=== PATIENT | male | born 1965 | race Caucasian/White ===

== ENCOUNTER 2019-08-21 16:17 | Outpatient (CLI) | payer BC, SELFPAY ==
[2019-08-21 16:45] LABS: Basophils # 0.1 10^3/uL (0.0-0.1); Eosinophils # 0.2 10^3/uL (0.0-0.8); Eosinophils % 2.6 %; Hemoglobin 14.7 g/dL (11.7-16.6); Lymphocytes # 1.6 10^3/uL (0.8-4.8); Lymphocytes % 19.6 %; Mean Corpuscular HGB Conc 31.3 g/dL (30.0-36.0); Mean Corpuscular Hemoglobin 28.6 pg (28.0-34.0); Mean Corpuscular Volume 91.4 fL (80-94); Mean Platelet Volume 11.3 fL (7.4-10.4); Monocytes # 0.6 10^3/uL (0.2-0.9); Monocytes % 6.7 %; Neutrophils # 5.63 10^3/uL (1.8-7.7); Neutrophils % 68.6 %; Nucleated Red Blood Cells % 0 %; Platelet Count 242 10^3/cmm (130-400); Red Blood Count 5.14 10^6/uL (4.1-5.3); White Blood Count 8.2 10^3/uL (4.0-10.0)
[2019-08-21 17:48] LABS: Slide Review Slide Review Perform
[2019-08-21 18:20] LABS: Alanine Aminotransferase 43 U/L (0-41); Albumin Level 4.5 g/dL (3.5-5.2); Alkaline Phosphatase 92 IU/L (40-130); Anion Gap 15.3 (5-19); Aspartate Amino Transferase 27 U/L (0-40); Blood Urea Nitrogen 13 mg/dL (6-20); Carbon Dioxide 25 mmol/L (22-29); Chloride 106 mmol/L (98-107); Chol HDL Ratio 4.27 mg/dL (1.0-5.00); Cholesterol 141 mg/dL (0-200); Glomerular Filtration Rate 100.4 mL/min (90-130); Glucose 133 mg/dL (65-115); HDL Cholesterol 33 mg/dL (60-100); LDL Cholesterol Calculated 80 mg/dL (50-129); LDL HDL Ratio 2.42 RATIO (0.00-3.22); Osmolality Calculated 292 mOsm/kg (285-295); Potassium 4.3 mmol/L (3.5-5.1); Sodium 142 mmol/L (136-145); Total Bilirubin 0.8 mg/dL (0.15-1.2); Total Protein 6.5 g/dL (6.6-8.7); Triglycerides 142 mg/dL (0-150)
[2019-08-21 18:49] LABS: Urine Color Yellow (Yellow)
[2019-08-21 18:50] LABS: Bilirubin Urine Neg (NEGATIVE); Blood Urine Neg (Negative); Glucose Urine UA Norm (Normal); Ketones Urine Negative (Negative); Leukocyte Esterase Urine Negative (Negative); Nitrate Urine Negative (Negative); Protein Urine Neg (Negative); Specific Gravity, Urine 1.025 (1.005-1.030); Urine Appearance Cloudy (CLEAR); Urobilinogen Urine Norm (Negative); pH Urine 5 (5-7)
[2019-08-21 18:51] LABS: Add Urine Culture? No; Amorphous Sediment Urine 4+; Bacteria Urine 2+; RBC Urine 0-4 /hpf (0-2); Squamous Epithelial Cell Urine 0-4 (0-5)
[2019-08-21 19:03] LABS: Estmated Average Glucose 117; Hemoglobin A1C 5.7 % (4.0-6.0)
== END 2019-08-21 16:18 | disposition home or self-care (01) ==
LOC: RAD 16:19
PROVIDERS: PCP Nurse Practitioner Family; Visit Provider Nurse Practitioner Family
DX: Z00.00 Encounter for general adult medical examination without abnormal findings (principal); I10 Essential (primary) hypertension; Z12.5 Encounter for screening for malignant neoplasm of prostate
CPT/HCPCS: 80053; 80061; 81001; 83036; 84153; 85025

== ENCOUNTER → 2019-09-26 09:16 | Outpatient (BNVA) | payer BC, SELFPAY | PROVIDERS: PCP Nurse Practitioner Family; Referring Provider Nurse Practitioner Family; Visit Provider Orthopaedic Surgery | DX: M25.561 Pain in right knee (principal); M17.11 Unilateral primary osteoarthritis, right knee | CPT/HCPCS: 73560; 73565 ==

== ENCOUNTER → 2020-03-26 13:03 | Outpatient (BNVA) | payer BC, SELFPAY | PROVIDERS: PCP Nurse Practitioner Family; Visit Provider Orthopaedic Surgery | DX: Z01.812 Encounter for preprocedural laboratory examination (principal); Z20.828 Contact with and (suspected) exposure to other viral communicable diseases | CPT/HCPCS: 87635 ==

== ENCOUNTER 2020-04-01 12:23 | Observation (INO) | payer BC, SELFPAY ==
[2020-03-18 11:23] VITALS: BMI 35.1
--- NOTE | 2020-03-18 11:56 | P.ANESASSM_ITS ---
Pre-Anesthetic Assessment Pre-Anesthetic Assessment: Height/Weight: Height 1.83 m Weight 117.48 kg Preop Diagnosis: Osteoarthritis right knee Proposed Procedure: Operation Date: 04/01/20 09:40 Proposed Procedures p Total Knee Arthroplasty 06841 M17.11(Right) - Chris Meade MD Was Beta Pedro taken within 24 hours: N/A Social: Social History: No alcohol and No tobacco Exam: Pre-Anes Outpt Exam: alert, oriented x 3, clear to auscultation bilaterally and regular rate & rhythm Airway: Submandibular: WNL Cervical ROM: WNL MP: 2 Dentition: False CV/HEM: CV/HEM: HTN Metabolic: Metabolic: DM and Morbid obesity Musc/skel: Musc/skel: OA/DJD Anesthetic Plan: ASA status: 3 Anesthesia: Regional (specify below) Other: SAB, adductor canal blk Risk of > 500 ml blood loss (7ml/kg in children): Yes, adequate IV access and fluids planned PFSH Anesthesia PFSH: Medical History (Updated 03/11/20 @ 09:25 by Chris Meade MD) Diabetes Hypertension Obesity Urinary retention Surgical History History of colonoscopy (~2015) History of laparoscopic cholecystectomy History of umbilical hernia repair (~01/2019) dr. rabago Family History Family/Other Obesity Denies family history of Anesthesia complication Bleeding disorder Social History Smoking and tobacco status: current every day smoker cigarettes Packs smoked per day: 1 Second hand smoke exposure: No Alcohol intake: never Desire information about substance/drug rehabilitation?: No Adopted: No Caregiver/support person: Yes Lives independently: Yes Household members: spouse Housing: House Marital status: service: No Current occupational status: employed Current occupation: self employeed. Current occupational exposures/hazards: No Pets and animals: No History of recent travel: No Leisure activites: hunting and fishing Sexually active: No Current gender identity: Male Hailey/Protestant: Mormon Special hailey needs: No Agree to transfusion: No Financial difficulty paying for basics: Decline to Answer Data Anesthesia Cardiac Studies: No Data to Display
[2020-04-01] VITALS (27 sets, daily range): BP systolic 120–161; BP diastolic 66–85; PULSE 63–92; RESP 11–22; TEMP 36.2–36.7; O2SAT 95–100
[2020-04-01] MEDS: sodium chloride 0.9% 1,000 ML 30 ML IV (08:11)
[2020-04-01] MEDS: acetaminophen 500 mg Tablet 1000 MG PO ×3 (08:12→20:40)
[2020-04-01] MEDS: oxyCODONE 20 mg ER (12 HR) Tablet PO (08:12)
[2020-04-01] MEDS: CELEcoxib 200 mg Capsule 400 MG PO (08:12)
[2020-04-01] MEDS: gabapentin 300 mg Capsule PO ×2 (08:13→17:22)
--- NOTE | 2020-04-01 08:59 | W.PM.OPSUD ---
Surgery/Procedure H&P Update DATE OF PROCEDURE: April 01, 2020 DATE H&P PERFORMED: 03/11/20 PREOP DIAGNOSIS: Osteoarthritis right knee PLANNED PROCEDURE: Operation Date: 04/01/20 09:40 Proposed Procedures p Total Knee Arthroplasty 06310 M17.11(Right) - Chris Meade MD
--- NOTE | 2020-04-01 09:26 | P.ANESUD_ITS ---
Pre-Anesthetic Update Pre-Anesthetic Assessment: Date of Surgery/Procedure: 04/01/20 Preop Mar gnosis: Osteoarthritis right knee Proposed Procedure: Operation Date: 04/01/20 09:40 Proposed Procedures p Total Knee Arthroplasty 73560 M17.11(Right) - Chris Meade MD Last Intake: Intake Last Liquid Date 03/31/20 Last Liquid Time 22:00 Last Solid Date 03/31/20 Last Solid Time 22:00 Vitals: Temperature 97.2 F L 04/01/20 07:56 Temperature Source Temporal Artery S can 04/01/20 07:56 Pulse Rate 65 04/01/20 07:56 Pulse Rhythm 04/01/20 08:00 Pulse Strength 3+ Normal 04/01/20 08:00 Respiratory Rate 18 04/01/20 08:12 Respiratory Depth Normal 04/01/20 08:12 Blood Pressure 139/85 04/01/20 07:56 Blood Pressure Vicky n 103 04/01/20 07:56 Pulse Oximetry 95 04/01/20 08:12 Oxygen Delivery Me thod 04/01/20 08:00 Cardiac Studies: No Data to Display
--- NOTE | 2020-04-01 10:20 | ANES.PROC ---
Anesthesia Procedures Procedure/Date: 04/01/20 Nerve Block ^: Nerve Block 1: Main Anesthesia: general anesthesia Time Out Performed: Yes Consent: requested by attending/covering physician, from patient, risks and benefits reviewed and patient agrees to proceed Nerve block location: adductor canal (right) Anesthesia monitors applied: pulse oximetry, EKG, BP cuff and oxygen Anesthetic Used: ropivicaine 0.5% Amount of anesthesia used (mL): 20 Ultrasound used to: recognize landmarks Nerve Stimulator Used?: No Interscalene/Femoral BLK: 4 stimuplex 21 g needle used for position and inplane approach Injection: neg aspiration of heme Patient Tolerated Procedure: well Complications: none
[2020-04-01] MEDS: tranexamic acid 1,000 mg/10mL SDV 1000 MG IRRIGATION (10:44)
[2020-04-01] MEDS: EPINEPHrine 1 mg/mL INJ XX (10:45)
[2020-04-01] MEDS: ketorolac 30 mg/mL INJ IM (10:45)
--- NOTE | 2020-04-01 11:21 | PM.OP ---
Operative Report Date of procedure: April 01, 2020 Pre-op Diagnosis: Osteoarthritis right knee Post-op diagnosis: same Post-op Findings: Same Procedure Done: The patient had eburnated bone over his medial femoral condyle, medial tibial plateau, patella and trochlea Implants: Melissa total knee arthroplasty components were used includin) Size 6 Triathalon cruciate retaining femoral component 2) Size 7 Tritanium tibial component 3) 40 mm /11 mm thickness Tritanium asymetric patella 4) Size 7/9 mm thickness CR tibial bearing insert Pathology: none sent Surgeon: Chris Meade Anesthesia: General Estimated blood loss (mL): 200 Findings: As above Condition: stable Disposition: PACU Procedure: The patient was taken to the operating room. Patient was given 1 g of tranexamic acid . The above anesthesia provided by the anesthesia service. A timeout was performed. The patient was prepped and draped in the usual fashion with the lower extremity exposed. A anterior incision was made, midline, from a point proximal to the patella to the distal tibial tubercle. The knee was entered through a medial parapatellar approach. The patella could be displaced laterally and the knee flexed. The patellar fat pad was resected to provide better visibility. Retractors were placed medially and laterally adjacent to the tibial plateau. The femoral canal was drilled in line with the longitudinal axis of the femur. Intramedullary femoral guide for used to make a distal femoral cut in 5 degrees of valgus, resecting 8 mm from the more prominent condyle. Next the extra medullary tibial guide was placed in alignment with the longitudinal axis of the tibia. The cutting guides were set to remove just over 9 mm from the high tibial plateau. The proximal tibia was then cut. The femoral measuring guide was then placed over the distal femur. Rotation was verified checking the relationship of the guide to the condyle and the trochlear groove. The femur was measured and cut for the desired femoral component. The desired tibial baseplate was then chosen. A trial reduction with the femur tibial baseplate and polyethylene was done, assuring that the knee was stable throughout full motion. Ligament balancing involve nothing more than removal of osteophytes of the medial tibia.The tibia was prepared for the tibial baseplate. Patellar thickness was then measured. The patella was cut removing articular cartilage and prepared for appropriate size patellar button. All surfaces were cleaned with pulsatile lavage. The femur tibia and patella were then [] into place. The posterior capsule and collateral ligaments were then injected with a solution of 100 mL of 0.2% ropivacaine, 1 mL of a 1:1000 epinephrine solution, and 30 mg of Toradol. Final polyethylene component was then snapped into place into the tibia. 2 grams of tranexamic acid were applied to the wound and gentamicin 80 mg and a 100 cc of solution were applied to the wound. The extensor retinaculum was closed with a running 1 Stratafix.. The subcutaneous tissues were closed with 2-0 Vicryl and the skin was closed with a running 3-0 Stratafix. The wound was covered with a Dermabond Prinio dressing. It was covered with 4xrs and a compressive Tubigauae was applied. The patient was taken to recovery room in stable condition.
--- NOTE | 2020-04-01 11:31 | XR_ITS ---
WS: [id number] Exam: XR knee RT 1-2V [id number] Date/Time of Exam: 04/01/2020 11:33 AM Reason For Exam: Right Total Knee arthroplasty A total knee prosthesis is in place in excellent position. Postoperative changes in the adjacent soft tissues. XR/XR knee RT 1-2V 04860 IMPRESSION: 1. Total knee replacement in excellent position.
[2020-04-01] MEDS: fentaNYL 50 mcg/mL INJ 2mL IVP ×2 (11:48→11:59)
[2020-04-01] MEDS: HYDROmorphone 1 mg/mL INJ 1 mL 0.5 MG IVP (12:05)
--- NOTE | 2020-04-01 12:12 | SUR.PHASEI ---
PT TO PACU SLEEPY WITH GOOD RESP X RAY DONE ON ADMIT TO PACU, PT THEN C/O OF PAIN, SEE MED GIVEN PT HAD AN ADDUCTOR CANAL BLOCK, AND GENERAL ANESTHESIA, PT AFFIRMS NUMBNESS TO RT FOOT AND PT IS UNABLE TO MOVE KNEED, KNEE DRESSING D/I FIRST ICE TO SITE DISTAL FOOT PINK WARM WITH PULSE AT +1 MARKED AND BILAT FOOT PUMPS ON, 1214 SEE PAIN MEDS GIVEN ORDERED DR WHEATLEY AT [facility] AND REQUESTS PT GET DILAUDID PER PROTOCOL AND SKIP MORPHINE.
--- NOTE | 2020-04-01 12:15 | SUR.PHASEI ---
PT SLEEPS AND SNORING RESP NOTED , PT OCC AWAKES AND LEONID OUT WITH PAIN BUT THEN QUICKLY BACK TO SLEEP WITH SNORING RESP.
[2020-04-01] MEDS: oxyCODONE 5 mg IR Tab/Cap PO ×2 (12:55→20:44)
[2020-04-01] MEDS: sodium chloride 0.9% 1,000 ML 100 ML IV ×2 (12:56→23:06)
--- NOTE | 2020-04-01 15:55 | ANE.PACU2 ---
Inpatient post-anesthesia follow up: Airway intact: Yes Vital signs: Temperature 97.3 F Pulse Rate 68 Respiratory Rate 18 Blood Pressure 146/83 Pulse Oximetry 95 Oxygen Delivery Me thod Room Air Oxygen Flow Rate 3 Fraction of Inspir ed Oxygen Hydration adequate: Yes Nausea and vomiting: No Pain level: 5 Mental status: Baseline Additional Comments: Difficult pain control.
[2020-04-01] MEDS: sennosides-docusate Tablet 2 TAB PO (17:22)
--- NOTE | 2020-04-01 17:46 | PC.RESP ---
Smoking Cessation information sent to patient.
[2020-04-01] MEDS: CELEcoxib 200 mg Capsule PO (20:40)
[2020-04-02] VITALS (8 sets, daily range): BP systolic 123–134; BP diastolic 63–74; PULSE 61–68; RESP 17–18; TEMP 36.4–36.8; O2SAT 95–97
[2020-04-02] MEDS: oxyCODONE 5 mg IR Tab/Cap PO ×3 (00:39→10:24)
[2020-04-02] MEDS: acetaminophen 500 mg Tablet 1000 MG PO ×2 (04:20→13:18)
--- NOTE | 2020-04-02 05:52 | PC.NURSE ---
Patient only voided 250mls for my shift. I bladder scanned patient and it showed over 488mls in his bladder. Verbal order received from Dr. Galvan to in and out Cath patient at this time. In and out Catheter completed using sterile technique. Patient tolerated okay. 450 mls of dark yellow urine drained from patient's bladder at this time.
[2020-04-02 06:14] LABS: Hemoglobin 12.5 g/dL (11.7-16.6)
--- NOTE | 2020-04-02 07:07 | PC.NURSE ---
Report to Martín SORIA at this time.
[2020-04-02] MEDS: tamsulosin 0.4 mg Capsule PO (08:45)
[2020-04-02] MEDS: sennosides-docusate Tablet 2 TAB PO (08:45)
[2020-04-02] MEDS: gabapentin 300 mg Capsule PO (08:45)
[2020-04-02] MEDS: CELEcoxib 200 mg Capsule PO (08:45)
--- NOTE | 2020-04-02 10:06 | PC.CHAP ---
Pastoral Care Encounter/Spiritual Assessment Type of Contact [] Declined free lance artist visit [] Patient/Family/Request visit [] Outpatient visit [] Follow-up visit [] Physician referral [] Code/Alert [X] Routine visit [] Staff referral [] Actively dying [] Patient sleeping [] Family support [] [] Out of room [] Palliative care [] [] Receiving care in room [] Pre-surgical visit [] Trauma [] Long length of stay [] ICU visit [] Other: Relational/Emotional Strength [X] Patient feels connected with others/family/visitors/staff [] Distress [] Loneliness/isolation [] Abandonment Spirituality of Patient [X] Person of Hailey [] Attends Voodoo of their Hailey [X] Believes in Prayer [] Reads Bible or Church materials [] There are Spiritual issues to be addressed Regional Account Manager Interventions [X] Prayer [X] Active listening [] Non-anxious presence [] Spiritual/emotional support [] Crisis/trauma care [] Spiritual counseling [] Bereavement support [] Provided bereavement packet [] Provided Bible/devotional materials [] Provided toy/stuffed animal, coloring book to patient or family member [] Provided Communion [] Anointing/[place] [] Salvation [X] Completed spiritual assessment [] Other: Impact on Illness or Injury [] Angry [] Fearful [] Anxious [] Often cries [] Exhaustion [] Unable to work [] Unable to attend yazdanism [] Unable to walk/stand [] Unable to read [] Unable to drive [] Unable to eat/drink [] Unable to sleep [] Unable to be with family [] Patient intubated [] Other: Summary PATIENT HAS PAIN RIGHT SHOULDER Time spent with patient 10 MIN
--- NOTE | 2020-04-02 12:52 | P.DS_ITS ---
Discharge Providers Date of Admission: 04/01/20 12:23 Date of Discharge: April 02, 2020 Attending Provider at Admission: Chris Meade MD Attending Provider at Discharge: Chris Meade MD Primary Care Provider: ARMANDO Wright Reason for Visit Reason for Visit: primary [facility] knee Hospital Course Hospital Course *Anthony was admitted for elective right total knee arthroplasty on 04/01/2020. Postoperatively his pain was well controlled by the first postoperative day on oral medications. He was up with therapy. He had a difficult time passing urine. At the time of discharge the plan is that if he is unable to pass urine by this evening he will be discharged home with a Nickerson catheter. He was managed with aspirin and foot pumps for DVT prophylaxis. Physical Exam Narrative: EXAM NARRATIVE: On the day of discharge his knee incision was clean. They had no drainage. There is minimal swelling in the thigh and knee and the calf. No distal neurovascular deficits were noted Discharge Data Data Completed and Pending: Completed Studies During Hospitalization Category Date Time Status XR knee RT 1-2V 7 3560 Routine Exams 04/01/20 11:31 Completed Labs from last 24 hours 04/02/20 05:15 Hgb 12.5 Vitals: Last Vital Signs Temp 98.3 F 04/02/20 07:46 Pulse 61 04/02/20 07:46 Resp 18 04/02/20 10:24 BP 131/73 04/02/20 07:46 Pulse Ox 97 04/02/20 07:46 Discharge Plan Discharge Patient Disposition: Home Condition: Stable Prescriptions: New acetaminophen 500 mg Tablet 500 mg PO Q8H PRN (Reason: fever or pain) 14 Days Qty: 42 RF: 0 celecoxib 200 mg Capsule 200 mg PO Q12H 14 Days Qty: 28 RF: 0 gabapentin 300 mg Capsule 300 mg PO BID 7 Days Qty: 14 RF: 0 oxycodone 5 mg Tablet 5 mg PO Q4H PRN (Reason: Moderate Pain) 7 Days Qty: 40 RF: 0 aspirin 325 mg Tablet,Delayed Release (Dr/Ec) 325 mg PO DAILY Qty: 30 RF: 0 Continued tamsulosin [Flomax] 0.4 mg capsule 0.8 mg PO BEDTIME RF: 0 Discontinued mupirocin 2 % ointment 1 applic topical BID Qty: 22 RF: 0 Discharge Orders: Discharge Order (Routine); Ordered 04/02/20 Ordered By: Chris Meade Other Ambulatory Orders: DME: Walker (Order) Location: None Selected Ordered By: Chris eMade Referrals: Chris Meade MD [Physician] - 04/16/20 1:45 pm Discharge Diet: Advance as tolerated Discharge Activity: Limit activity as instructed Patient Instructions: Acetaminophen (By mouth), Gabapentin (By mouth), Oxycodone, Rapid Release (By mouth), Celecoxib (By mouth), Total Knee Replacement (DC) Activity Restrictions/Additional Instructions: Okay to shower Keep Tubigauze sleeve in place for swelling. Okay to remove for hygiene. Apply FirstIce up to 20 min/hr for pain and swelling Take Celebrex twice a day for the next 15 days for pain , discontinue other anti-inflammatories Take Neurontin twice a day for 7 days. Take Tylenol 500mg (1-2 tabs) as needed 3 times a day for mild pain take oxycodone for breakthrough pain. Exercises per physical therapy. May weight-bear as tolerated on total knee arthroplasty Follow-up with primary care physician or Wednesday this week and to have Nickerson discontinued if placed Discharge Attestations Time Spent in Discharge Care*: other Quality Metrics Clinical Quality Measures During this hospital stay, did patient experience: None Coding Level of Care Code Acute Final Inspector Truck Trailer for Foster Delgado
--- NOTE | 2020-04-02 14:00 | PC.NURSE ---
gonsales catheter placed. discussed discharge instructions, medications, catheter care and follow up appointments with patient and , both verbalize understanding. questions arouse about medications that the patient can take since he previously had weight loss surgery. All current questions answered.
--- NOTE | 2020-04-19 10:44 | PC.SOCIAL ---
Prior authorization completed in Cover My Meds. Notified Yamilet at [facility] in [place] and she reports it went through and patient already picked up on 04/16/20.
== END 2020-04-02 14:30 | disposition home or self-care (01) ==
LOC: MEDSURG 12:24
PROVIDERS: Admitting Provider Orthopaedic Surgery; PCP Nurse Practitioner Family; Visit Provider Orthopaedic Surgery
PROC: (CPT 27447; principal; 2020-04-01 09:20)
DX: M17.11 Unilateral primary osteoarthritis, right knee (principal); I10 Essential (primary) hypertension; E11.9 Type 2 diabetes mellitus without complications; E66.01 Morbid (severe) obesity due to excess calories; Z68.35 Body mass index [BMI] 35.0-35.9, adult; F17.210 Nicotine dependence, cigarettes, uncomplicated
CPT/HCPCS: 27447; 36415; 51702; 64447; 73560; 76942; 85018; 96361; 96365; 97110; 97161; 97166; 97530; 97535; C1776; G0378; J0171; J0360; J0690; J1170; J1580; J1885; J2250; J2405; J2795; J3010; J3490; J7030

== ENCOUNTER 2020-04-09 15:23 | Outpatient (CLI) | payer BC, SELFPAY ==
--- NOTE | 2020-04-09 15:00 | USCV_ITS ---
Ramon Cruz Age: 54 Gender: M : 1965 Exam Date: 04/09/2020 15:48 Ordering Phys: Chris Meade MD Technologist: Kwame Katz Exam Location: [facility] [place]_ Indication: PRESENCE OF RIGHT ARTIFICIAL KNEE JOINT PROCEDURES: Venous duplex imaging was performed in only the right lower extremity. The following venous structures were evaluated: common femoral vein, profunda vein, proximal portion of the greater saphenous vein, superficial femoral vein, and the popliteal vein. In addition, the posterior tibial and peroneal trunk were evaluated. Serial compression, augmentation maneuvers, and spectral Doppler flow evaluation were performed. FINDINGS: Normal 2-D Doppler and augmentation and compressibility throughout the lower extremity venous structures. Additional imaging through the proximal calf veins also reveals no thrombus. Limited evaluation of the greater saphenous vein is patent with no thrombus CONCLUSIONS No DVT right lower extremity. Dr. Duyen Yang DO (Electronically Signed) Final Date: 09 April 2020 16:29 S
== END 2020-04-09 15:24 | disposition home or self-care (01) ==
PROVIDERS: PCP Nurse Practitioner Family; Visit Provider Orthopaedic Surgery
DX: Z96.651 Presence of right artificial knee joint (principal)
CPT/HCPCS: 93971

== ENCOUNTER → 2020-05-14 13:54 | Outpatient (BNVA) | payer BC, SELFPAY | PROVIDERS: PCP Nurse Practitioner Family; Visit Provider Orthopaedic Surgery | DX: Z48.89 Encounter for other specified surgical aftercare (principal); Z96.651 Presence of right artificial knee joint | CPT/HCPCS: 73560; 73565 ==

== ENCOUNTER → 2020-09-27 15:27 | Outpatient (BNVA) | payer BC, SELFPAY | PROVIDERS: PCP Nurse Practitioner Family; Visit Provider Orthopaedic Surgery | DX: Z20.822 Contact with and (suspected) exposure to COVID-19 (principal); Z11.52 Encounter for screening for COVID-19 | CPT/HCPCS: 87635 ==

== ENCOUNTER 2020-10-03 06:31 | Day surgery (SDC) | payer BC, SELFPAY ==
[2020-09-25 10:58] VITALS: BMI 31.1
--- NOTE | 2020-09-25 11:32 | P.ANESASSM_ITS ---
Pre-Anesthetic Assessment Pre-Anesthetic Assessment: Height/Weight: Height 1.83 m Weight 104.326 kg Preop Diagnosis: Osteoarthritis right knee Proposed Procedure: Operation Date: 10/03/20 10:00 Proposed Procedures p Left Total Knee Arthroplasty 41815 M17.12(Left) - Chris Meade MD Familial anesthetic complications: none Social: Social History: No alcohol and No tobacco Exam: Pre-Anes Outpt Exam: alert, oriented x 3, clear to auscultation bilaterally and regular rate & rhythm Airway: Cervical ROM: WNL MP: 2 Dentition: False CV/HEM: CV/HEM: HTN Metabolic: Metabolic: DM and Morbid obesity Musc/skel: Musc/skel: OA/DJD Anesthetic Plan: ASA status: 2 Anesthesia: Regional (specify below) (spinal + adductor) Other: spinal attempts X 2 unsuccessful - but patient would like to try again Risk of > 500 ml blood loss (7ml/kg in children): Yes, adequate IV access and fluids planned PFSH Anesthesia PFSH: Medical History Diabetes Hypertension Obesity Urinary retention Surgical History (Updated 09/25/20 @ 10:55 by Scarlet Cohn) History of colonoscopy (~2015) History of laparoscopic cholecystectomy History of umbilical hernia repair (~01/2019) dr. rabago Family History Family/Other Obesity Denies family history of Anesthesia complication Bleeding disorder Social History (Updated 09/25/20 @ 10:56 by Scarlet Cohn) Smoking and tobacco status: former smoker Second hand smoke exposure: No Alcohol intake: never Desire information about substance/drug rehabilitation?: No Adopted: No Caregiver/support person: Yes Lives independently: Yes Household members: spouse Housing: House Marital status: service: No Current occupational status: employed Current occupation: self employeed. Current occupational exposures/hazards: No Pets and animals: No History of recent travel: No Leisure activites: hunting and fishing Sexually active: No Current gender identity: Male Hailey/Zoroastrian: Congregation Special hailey needs: No Agree to transfusion: No Financial difficulty paying for basics: Decline to Answer Data Anesthesia Cardiac Studies: No Data to Display
--- NOTE | 2020-09-25 11:37 | SUR.PREOP ---
1100 informed pt and that per anesthesia protocol that he needed a ekg and once respiratory therapist here to perform ekg,pt refused and informed dr he of this and she states it's up to dr mcgregor if he wants this or note
[2020-10-03] VITALS (13 sets, daily range): BP systolic 97–128; BP diastolic 48–70; PULSE 51–65; RESP 12–20; TEMP 36.2–36.4; O2SAT 96–100
[2020-10-03] MEDS: CELEcoxib 200 mg Capsule 400 MG PO (07:04)
[2020-10-03] MEDS: acetaminophen 500 mg Tablet 1000 MG PO (07:05)
[2020-10-03] MEDS: oxyCODONE 20 mg ER (12 HR) Tablet PO (07:05)
[2020-10-03] MEDS: gabapentin 300 mg Capsule PO (07:05)
[2020-10-03] MEDS: sodium chloride 0.9% 1,000 ML 30 ML IV (07:05)
--- NOTE | 2020-10-03 07:45 | P.HP_ITS ---
Same Day Surgery H&P Indication for Procedure/HPI DATE OF PROCEDURE: October 03, 2020 CHIEF COMPLAINT/INDICATIONFOR SURGICAL PROCEDURE: 54-year-old male with osteoarthritis of bilateral knees with failure of conservative measure. Did well with right total knee arthroplasty earlier this year and now here for left total knee PREOP DIAGNOSIS: Osteoarthritis Left knee PLANNED PROCEDRUE: Operation Date: 10/03/20 08:00 Proposed Procedures p Left Total Knee Arthroplasty 56704 M17.12(Left) - Chris Meade MD Medications/Allergies* Home Medications Medication Instructions Recorded Confirmed Type tamsulosin 0.4 mg capsule 0.8 mg PO BEDTIME 03/30/19 10/03/20 History Allergies/Adverse Reactions Allergy/AdvReac Type Severity Reaction Status Date / Time No Known Allergies Allergy Verified 09/25/20 10:56 Current Medications: Generic Name Dose Route Start Last Admin Trade Name Freq PRN Reason Stop Dose Admin Sodium Chloride 1,000 mls @ 30 mls/hr 10/03/20 06:45 10/03/20 07:05 Sodium Chloride 0.9% IV 10/04/20 06:44 30 mls/hr .Q24H YESSENIA Administration Pertinent History/Comorbid Conditions* Medical History (Updated 04/03/20 @ 00:00 by ) Diabetes Hypertension Obesity Urinary retention Surgical History (Updated 04/02/20 @ 07:47 by Chris Meade MD) History of colonoscopy (~2015) History of laparoscopic cholecystectomy History of umbilical hernia repair (~01/2019) dr. rabago Family History (Updated 03/30/19 @ 14:27 by Jess Sales RN) Obesity Family/Other Denies family history of Anesthesia complication Bleeding disorder Social History Smoking and tobacco status: former smoker Second hand smoke exposure: No Alcohol intake: never Desire information about substance/drug rehabilitation?: No Adopted: No Caregiver/support person: Yes Lives independently: Yes Household members: spouse Housing: House Marital status: service: No Current occupational status: employed Current occupation: self employeed. Current occupational exposures/hazards: No Pets and animals: No History of recent travel: No Leisure activites: hunting and fishing Sexually active: No Current gender identity: Male Hailey/Presybeterian: Voodoo Special hailey needs: No Agree to transfusion: No Financial difficulty paying for basics: Decline to Answer Pertinent Exam Findings alert, oriented x 3, clear to auscultation bilaterally, regular rate & rhythm, operative site marked and procedure specific exam findings Recommendations Surgery/Procedure today Coding Level of Care Code Acute Performance Improvement Director for Foster Delgado
--- NOTE | 2020-10-03 08:13 | P.ANESUD_ITS ---
Pre-Anesthetic Update Pre-Anesthetic Assessment: Date of Surgery/Procedure: 10/03/20 Preop Mar gnosis: Osteoarthritis Left knee Proposed Procedure: Operation Date: 10/03/20 08:00 Proposed Procedures p Left Total Knee Arthroplasty 96628 M17.12(Left) - Chris Meade MD Any changes to Pre-Anesthetic Assessment?: No Last Intake: Intake Last Liquid Date 10/02/20 Last Liquid Time 23:00 Last Solid Date 10/02/20 Last Solid Time 23:00 Vitals: Temperature 97.5 F L 10/03/20 06:54 Temperature Source Temporal Artery S can 10/03/20 06:54 Pulse Rate 65 10/03/20 06:54 Pulse Rhythm 10/03/20 06:54 Pulse Strength 3+ Normal 10/03/20 06:54 Respiratory Rate 18 10/03/20 06:54 Blood Pressure 128/70 10/03/20 06:54 Blood Pressure Vicky n 89 10/03/20 06:54 Pulse Oximetry 99 10/03/20 06:54 Oxygen Delivery Me thod 10/03/20 06:54 Exam: Pre-Anes Outpt Exam: alert, oriented x 3, clear to auscultation bilaterally and regular rate & rhythm Cardiac Studies: No Data to Display
--- NOTE | 2020-10-03 08:39 | ANES.PROC ---
Anesthesia Procedures Procedure/Date: 10/03/20 Nerve Block ^: Nerve Block 1: Main Anesthesia: spinal anesthesia block Time Out Performed: Yes Consent: requested by attending/covering physician, from patient, risks and benefits reviewed and patient agrees to proceed Nerve block location: adductor canal (left) Anesthesia monitors applied: pulse oximetry, EKG, BP cuff and oxygen Nerve block position: supine Anesthetic Used: ropivicaine 0.5% Amount of anesthesia used (mL): 20 Ultrasound used to: recognize landmarks Nerve Stimulator Used?: No Interscalene/Femoral BLK: 4 stimuplex 21 g needle used for position and inplane approach and visualize local anesthetic spread Injection: neg aspiration of heme Patient Tolerated Procedure: well Complications: none
[2020-10-03] MEDS: tranexamic acid 1,000 mg/10mL SDV 1000 MG IRRIGATION (08:59)
[2020-10-03] MEDS: tranexamic acid 1,000 mg/10mL SDV 2000 MG (09:00)
[2020-10-03] MEDS: EPINEPHrine 1 mg/mL INJ (09:00)
[2020-10-03] MEDS: ketorolac 30 mg/mL INJ (09:00)
--- NOTE | 2020-10-03 10:30 | XR_ITS ---
WS: [id number] Exam: XR knee LT 1-2V [id number] Date/Time of Exam: 10/03/2020 10:32 AM Reason For Exam: Postop left total knee A total knee prosthesis has been placed and appears to be in excellent position. Postoperative change s in the adjacent soft tissues. XR/XR knee LT 1-2V 79526 IMPRESSION: 1. Total knee replacement in excellent position.
--- NOTE | 2020-10-03 10:31 | P.OP_ITS ---
Operative Report Date of procedure: October 03, 2020 Pre-op Diagnosis: Osteoarthritis Left knee Procedure: [place] [id number] [facility].[place], [place] [address]Dstdhypkj NoteSigned Patient: Ramon Cruz KMR#: [id number]: [id number]#:[id number]/Sex: 54 / MADM Date: 04/01/20Loc: OR Room/Bed:Encounter Date: 04/01/20Attending Dr: Chris Meade MD Report Number: [id number] Operative Report Date of procedure: April 01, 2020 Pre-op Diagnosis: Osteoarthritis left knee Post-op diagnosis: same Post-op Findings: Same Procedure Done: The patient had eburnated bone over his medial femoral condyle, medial tibial plateau, patella and trochlea Implants: [employer] total knee arthroplasty components were used includin) Size 6 Triathalon cruciate retaining femoral component 2) Size 7 Tritanium tibial component 3) 40 mm /11 mm thickness Tritanium asymetric patella 4) Size 7/9 mm thickness CR tibial bearing insert Pathology: none sent Surgeon: Chris Meade Anesthesia: General Estimated blood loss (mL): 200 Findings: As above Condition: stable Disposition: PACU Procedure: The patient was taken to the operating room. Patient was given 1 g of tranexamic acid . The above anesthesia provided by the anesthesia service. A timeout was performed. The patient was prepped and draped in the usual fashion with the lower extremity exposed. A anterior incision was made, midline, from a point proximal to the patella to the distal tibial tubercle. The knee was entered through a medial parapatellar approach. The patella could be displaced laterally and the knee flexed. The patellar fat pad was resected to provide better visibility. Retractors were placed medially and laterally adjacent to the tibial plateau. The femoral canal was drilled in line with the longitudinal axis of the femur. Intramedullary femoral guide for used to make a distal femoral cut in 5 degrees of valgus, resecting 8 mm from the more prominent condyle. Next the extra medullary tibial guide was placed in alignment with the longitudinal axis of the tibia. The cutting guides were set to remove just over 9 mm from the high tibial plateau. The proximal tibia was then cut. The femoral measuring guide was then placed over the distal femur. Rotation was verified checking the relationship of the guide to the condyle and the trochlear groove. The femur was measured and cut for the desired femoral component. The desired tibial baseplate was then chosen. A trial reduction with the femur tibial baseplate and polyethylene was done, assuring that the knee was stable throughout full motion. Ligament balancing involve nothing more than removal of osteophytes of the medial tibia.The tibia was prepared for the tibial baseplate. Patellar thickness was then measured. The patella was cut removing articular cartilage and prepared for appropriate size patellar button. All surfaces were cleaned with pulsatile lavage. The femur tibia and patella were then [] into place. The posterior capsule and collateral ligaments were then injected with a solution of 100 mL of 0.2% ropivacaine, 1 mL of a 1:1000 epinephrine solution,30 mg of Toradol, and 1 g of tranexamic acid final polyethylene component was then snapped into place into the tibia. The extensor retinaculum was closed with a running 1 Stratafix.. The subcutaneous tissues were closed with 2-0 Vicryl and the skin was closed with a running 3-0 Stratafix. The wound was covered with a Dermabond Prinio dressing. It was covered with 4xrs and a compressive Tubigauae was applied. The patient was taken to recovery room in stable condition.
--- NOTE | 2020-10-03 10:55 | SUR.PHASEII ---
patient into phase 2, awake and alert. patient can feel down to upper thigh bilaterally, cannot move legs or feet yet. dressing dry and intact. toes to left foot warm, pink. patient states no pain at this time. taking fluids. plan to go home today after spinal wears off and pt seen by Physical therapy. called to come back to room.
--- NOTE | 2020-10-03 11:28 | SUR.PHASEII ---
patient can feel sensation to knee bilaterally, still unable to move feet. states no pain
--- NOTE | 2020-10-03 12:29 | SUR.PHASEII ---
first ice applied to left knee. patient can feel sensation to ankle bilaterally, can move upper part of legs side to side. can slightly move feet bilaterally. patient states no pain.
--- NOTE | 2020-10-03 13:56 | SUR.PHASEII ---
patient sitting up at bedside to use urinal. able to move legs and feet
--- NOTE | 2020-10-03 14:03 | SUR.PHASEII ---
physical therapy in with patient for bedside therapy
--- NOTE | 2020-10-03 15:10 | SUR.PHASEII ---
patient has had approx 1400ml po liquids, says he feels like he may need to urinate but cannot yet. bladder scanner shows approx 200ml in bladder.
--- NOTE | 2020-10-03 16:21 | ANE.PACU2 ---
Inpatient post-anesthesia follow up: Airway intact: Yes Vital signs: Temperature 97.6 F Pulse Rate 56 Respiratory Rate 18 Blood Pressure 100/52 Pulse Oximetry 98 Oxygen Delivery Me thod Room Air Oxygen Flow Rate Fraction of Inspir ed Oxygen Hydration adequate: Yes Nausea and vomiting: No Pain level: 2 Mental status: Baseline
--- NOTE | 2020-10-03 16:33 | SUR.PHASEII ---
patient still unable to urinate. bladder scan still shows 200ml urine.
== END 2020-10-03 17:00 | disposition home or self-care (01) ==
PROVIDERS: PCP Nurse Practitioner Family; Visit Provider Orthopaedic Surgery
PROC: (CPT 27447; principal; 2020-10-03 08:00)
DX: M17.12 Unilateral primary osteoarthritis, left knee (principal); I10 Essential (primary) hypertension; E11.9 Type 2 diabetes mellitus without complications; E66.01 Morbid (severe) obesity due to excess calories; Z68.31 Body mass index [BMI] 31.0-31.9, adult; Z87.891 Personal history of nicotine dependence
CPT/HCPCS: 27447; 64447; 73560; 76942; 97116; 97161; C1776; J0171; J0690; J1580; J1885; J2250; J2370; J2704; J2795; J7030

== ENCOUNTER → 2020-11-05 11:41 | Outpatient (BNVA) | payer BC, SELFPAY | PROVIDERS: PCP Nurse Practitioner Family; Visit Provider Orthopaedic Surgery | DX: Z96.652 Presence of left artificial knee joint (principal) | CPT/HCPCS: 73560; 73565 ==

== ENCOUNTER 2021-08-05 09:49 | Outpatient (CLI) | payer BC, SELFPAY ==
--- NOTE | 2021-08-05 10:02 | XR_ITS ---
WS: [id number] XR shoulder RT min 2V* [id number] REASON FOR EXAM: R ANTERIOR SHOULDER PAIN FINDINGS: No fracture or focal bone lesion. Minimal narrowing of the acromioclavicular joint with large clavicular osteophyte with adjacent bone fragment. Narrowing of the glenohumeral joint with subchondral sclerosis, cystic change, and osteophytosis of t he humeral head and glenoid. Sclerosis and cystic change at the rotator cuff tendon insertion on the humeral head. XR/XR shoulder RT min 2V* [id number] IMPRESSION: Mild to moderate osteoarthritis of the acromioclavicular joint which may be pos ttraumatic. Moderate osteoarthritis in the glenohumeral joint. Moderate rotator cuff tendon arthropathy.
== END 2021-08-05 09:50 | disposition home or self-care (01) ==
LOC: RAD 09:51
PROVIDERS: PCP Nurse Practitioner Family; Visit Provider Nurse Practitioner Family
DX: M25.511 Pain in right shoulder (principal); M19.011 Primary osteoarthritis, right shoulder; M12.811 Other specific arthropathies, not elsewhere classified, right shoulder
CPT/HCPCS: 73030

== ENCOUNTER 2021-10-09 06:52 | Outpatient (CLI) | payer OTHER, SELFPAY ==
--- NOTE | 2021-10-09 07:15 | MR_ITS ---
WS: [id number] MRI RIGHT SHOULDER NONCONTRAST TECHNIQUE: Sagittal T2, coronal T1, T2 and proton density imaging. Axial gradient PDE imaging. CLINICAL INFORMATION: rt shoulder pain COMPARISON: None. FINDINGS: Advanced degenerative arthritis AC joint with hypertrophic changes. Narrowing of the subacromial spac e. Hypertrophic spurring along the medial humeral head. Narrowing of the glenohumeral joint. Subchond ral cystic change involving the humerus and glenoid. Fluid and edema in the AC joint with a small hillary unt of subacromial fluid. 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 High-grade complete tear involving the distal supraspinatus with tendon retraction measuring approxim ately 2.0 CM. Intrasubstance tear involving the distal infraspinatus with fluid and edema. Distal inf raspinatus appears intact. Normal teres minor. Normal subscapularis. Calcified loose body in the subcoracoid recess. Biceps tend on is intact within the bicipital groove. Tendinopathy intra-articular biceps tendona. Biceps labral anchor appears intact. Hypertrophic spurring involving the glenoid. Degenerative fraying glenoid labr um. MR/MR shoulder RT wo con* [id number] IMPRESSION: 1. Advanced degenerative arthritis AC joint with fluid and edema. Narrowing of the subacromial space. Fluid in the subacromial bursa. 2. High-grade complete tear of the distal supraspinatus with tendon retraction measuring 2.0 CM. 3. Intrasubstance tear with fluid and edema involving the infraspinatus distal ly. Distal infraspinatus appears intact. 4. Rotator cuff is otherwise intact. 5. Calcified loose body in the subcoracoid bursa. 6. Biceps tendon intact within the bicipital groove. Tendinopathy involving th e intra-articular biceps tendon. 7. Moderate to advanced arthritis glenohumeral joint with subchondral cystic c hange and hypertrophic spurring. 8. 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
== END 2021-10-09 06:53 | disposition home or self-care (01) ==
LOC: RAD 06:52
PROVIDERS: PCP Nurse Practitioner Family; Visit Provider Orthopaedic Surgery
DX: M13.811 Other specified arthritis, right shoulder (principal); M75.121 Complete rotator cuff tear or rupture of right shoulder, not specified as traumatic; R60.0 Localized edema
CPT/HCPCS: 73221